=== PATIENT | female | born 1990 | race Caucasian/White ===

== ENCOUNTER 2023-12-30 04:47 | Emergency (ER) | payer OTHER ==
[2023-12-30 04:59] VITALS: BP 161/60; PULSE 66; RESP 18; TEMP 97.9; BMI 46.5
[2023-12-30] MEDS ORDERED: IBUPROFEN 600 MG TABLET (FP) PO ONE (06:10)
[2023-12-30] MEDS: IBUPROFEN 600 MG TABLET (FP) PO ONE (06:12)
== END 2023-12-30 06:19 | disposition home or self-care (01) ==
LOC: JER 04:47
DX: R09.81 Nasal congestion (principal); J34.89 Other specified disorders of nose and nasal sinuses; R05.9 Cough, unspecified; M79.10 Myalgia, unspecified site; R51.9 Headache, unspecified; J06.9 Acute upper respiratory infection, unspecified; U07.1 COVID-19
CPT/HCPCS: 0241U-QW; 99283-25